=== PATIENT | female | born 1970 | race Caucasian/White ===

== ENCOUNTER 2019-05-09 18:20 | Emergency (ER) | payer OTHER ==
[~2019-05-09] VITALS: Ht 170.2 cm; Wt 72.6 kg
[2019-05-09] MEDS ORDERED: CYCLOBENZAPRINE10 MG (18:38)
[2019-05-09] MEDS ORDERED: SOLARAZE100 GM (18:39)
[2019-05-09] MEDS ORDERED: ULTRAM50 MG (18:39)
== END 2019-05-09 22:04 | disposition home or self-care (01) ==
LOC: ER 18:20
DX: M54.32 Sciatica, left side (principal); M54.31 Sciatica, right side

== ENCOUNTER 2020-03-03 11:58 | Emergency (ER) | payer OTHER ==
[~2020-03-03] VITALS: Ht 167.6 cm; Wt 68.9 kg
[~2020-03-03 11:58] MED LIST: CYCLOBENZAPRINE10 MG; SOLARAZE100 GM; ULTRAM50 MG
== END 2020-03-04 21:17 | disposition home or self-care (01) ==
LOC: ER 11:58
DX: D50.0 Iron deficiency anemia secondary to blood loss (chronic) (principal); N93.8 Other specified abnormal uterine and vaginal bleeding; D25.1 Intramural leiomyoma of uterus
CPT/HCPCS: 36430 ×3; 76830; 86904 ×3; 86922 ×3; 93005; P9016 ×3

== ENCOUNTER 2020-11-08 13:36 | Emergency (ER) | payer OTHER ==
[~2020-11-08] VITALS: Ht 165.1 cm; Wt 73.5 kg
[2020-11-08] MEDS ORDERED: IRON236 MG (13:51)
[2020-11-08] MEDS ORDERED: [UNRECOGNIZED DRUG - OTHER] (13:52)
== END 2020-11-08 19:16 | disposition home or self-care (01) ==
LOC: ER 13:36
DX: N93.8 Other specified abnormal uterine and vaginal bleeding (principal); D25.9 Leiomyoma of uterus, unspecified

== ENCOUNTER 2025-03-07 09:49 | Outpatient (CLI) | payer OTHER ==
[~2025-03-07 09:49] MED LIST changes: +IRON236 MG; +[UNRECOGNIZED DRUG - OTHER]
== END 2025-03-07 10:02 | disposition home or self-care (01) ==
LOC: MAMO-SONO 09:49
PROVIDERS: ATTEND Obstetrics & Gynecology
DX: N60.11 Diffuse cystic mastopathy of right breast (principal)